=== PATIENT | male | born 1970 | race Two or more races ===

== ENCOUNTER 2024-09-08 05:18 | Observation (INO) ==
--- NOTE | 2024-08-08 10:28 | PAT Medication Instructions ---
Medication Instructions Date of Service August 08, 2024 Home Medications aspirin 81 mg capsule 81 mg PO 2XWK glucosamine sulf dipot chlr,msm,chond 550 mg-C 30 mg-armin 1 mg capsule (Glucosamine Chondroitin) 1 cap PO 2XWK multivitamin 1 tab PO 2XWK omeprazole magnesium 20 mg tablet,delayed release (Prilosec OTC) 10 mg PO Q2D Continue as directed omeprazole magnesium 20 mg tablet,delayed release (Prilosec OTC) 10 mg PO Q2D ASK your prescriber and surgeon aspirin 81 mg capsule 81 mg PO 2XWK STOP taking 2 weeks before surgery (or as soon as possible if surgery is within 2 weeks) glucosamine sulf dipot chlr,msm,chond 550 mg-C 30 mg-armin 1 mg capsule (Glucosamine Chondroitin) 1 cap PO 2XWK DO NOT take the morning of surgery multivitamin 1 tab PO 2XWK MORNING OF SURGERY: NOTHING TO EAT OR DRINK AFTER MIDNIGHT Other Notes If you have any questions please call us at [phone] or [phone] or [phone] or [phone]
--- NOTE | 2024-08-12 15:20 | Anesthesiology Consultation ---
Date of Service August 12, 2024 Assessment & Plan (1) Encounter for pre-operative examination: - Case discussed in detail with Dr. Aguilar who advised nothing additional is needed. - Outpatient joint assessment: Patient is currently scheduled for inpatient pathway. If re-evaluated and patient/surgeon requests outpatient pathway, patient is not ideal candidate for outpatient joint program from anesthesia standpoint pending surgeon's office assessment of pt motivation/support/completion of same day joint program preop requirements. Chart Review Chart Review: Acceptable Risk for Surgery and Patient seen in Pre Admission Testing Teaching & Discussion Pre-Anesthesia Teaching/Discussion Notes: Instructed NPO after midnight before surgery, except medications with 15 cc of water. Medication instructions provid ed according to the [facility] guidelines. History Surgery Operation Date: 09/08/24 11:00 Proposed Procedures p Left Anterior Total Hip Arthroplasty - Dom Alejandro, Height/Weight Height: 5 ft 10 in Weight: 142.8 kg Allergies Allergy/AdvReac Type Severity Reaction Status Date / Time No Known Allergies Allergy Verified 08/07/24 08:24 Medications Home Medications Medication Instructions Recorded Confirmed Last Taken aspirin 81 mg capsule 81 mg PO 2XWK 08/07/24 08/07/24 Unknown glucosamine sulf dipot 1 cap PO 2XWK 08/07/24 08/07/24 Unknown chlr,msm,chond 550 mg-C 30 mg-armin 1 mg capsule (Glucosamine Chondroitin) multivitamin 1 tab PO 2XWK 08/07/24 08/07/24 Unknown omeprazole magnesium 20 mg 10 mg PO Q2D 08/07/24 08/07/24 Unknown tablet,delayed release (Prilosec OTC) Past Medical History Medical History (Updated 08/18/24 @ 12:32 by Melissa De La Vega PA-C) Cardiac murmur detected 10 yrs ago-states had extensive cardiac testing which was all normal-has no issues, discharged from cardiology, no longer needs to see-no murmur detected at 08/12/24 PAT visit Chronic back pain Heartburn controlled, stable per pt Osteoarthritis Palpitations agpqspp-zfaj-ddgfgdn negative cardiac work-up 10 yrs ago-lasts 10-15 minutes- associated dizziness-denies presyncope-denies change or worsening since onset 10 yrs ago Patient denies h/o stroke, seizures, heart attack, heart failure, DM, HTN, blood clots/DVTs or blood transfusions. Exercise / Class Metabolic Activity III < 4 Walking/Shop/Light housework (denies chest discomfort or shortness of breath with usual activities, denies regularly walking up one flight of stairs/up a hill) Past Family History Family History Other No family history of adverse response to anesthesia Past Surgical History Surgical History History of bilateral knee replacement (2015) History of colonoscopy History of surgery mass removal-left testicle Hx laparoscopic cholecystectomy (2018) S/P lumbar laminectomy (2008) L4/L5 Past Anesthesia History No Hx of Anesthesia Complications and No Family Hx of Anesthesia Complications History of PONV No Hx of PONV and No Hx of Motion Sickness Social History Smoking Status: Never smoker Do You Dip or Chew Tobacco: No Hx Alcohol Use: No Hx Substance Use: No substance use type: does not use Review of Systems Snoring, denies witnessed apneas. Patient denies chest pain, shortness of breath, dyspnea on exertion, fever, chills, cough, or wheezing. Physical Exam Vital Signs Vitals BP 148/96 P 81 TEMP 98.4 SP02 94% on RA RESP 18 Physical Patient resting comfortably in chair in no acute distress, alert and oriented, responding appropriately throughout visit Full cervical extension range of motion without pain TMD 3.5 finger breadths Mallampati Score 3 Dentition: several chipped teeth, denies loose teeth, caps/crowns, implants or bridges Lungs: normal respiratory effort. Good air movement, clear throughout to auscultation, no adventitious breath sounds Cardiac: regular rhythm and rate, no murmurs noted Carotid arteries: negative bruit bilat Lab Results Anesthesia Preop Results Results Anesthesia Widget: WBC 9.41 K/ul (4.8-10.8) 08/12/24 Hgb 15.4 g/dl (14.0-18.0) 08/12/24 Hct 44.4 % (42.0-52.0) 08/12/24 Plt 230 K/uL (130-400) 08/12/24 Na 141 mmol/L (136-145) 08/12/24 K 4.2 mmol/L (3.5-5.1) 08/12/24 Cl 105 mmol/L (98-107) 08/12/24 CO2 30 mmol/L (21-32) 08/12/24 BUN 16 mg/dl (6-23) 08/12/24 Creat 0.98 mg/dl (0.6-1.4) 08/12/24 Glucose Level 92 mg/dl (70-99(Fasting)) 08/12/24 PT 10.7 Seconds (9.0-12.0) 08/12/24 PTT 28 Seconds (21-31) 08/12/24 INR 1.0 (0.9-1.1) 08/12/24 Blood Type A Negative 08/12/24 Antibody Screen NEGATIVE 08/12/24 Testing Electrocardiogram Date: 08/14/24 Sinus rhythm with occasional PVCs, rate 79 bpm Chest X-Ray Date: 08/12/24 No acute findings.
--- NOTE | 2024-09-04 14:29 | History & Physical Report ---
Date of Service September 04, 2024 Assessment & Plan (1) Osteoarthritis of left hip: We will proceed with a left total hip arthroplasty. Postoperatively, he will be started on aspirin for DVT prophylaxis and kept overnight in the hospital for postop medical management. He plans to have the hospital set up home health for discharge. History of Present Illness Chief Complaint: Osteoarthritis of the left hip. Primary Care Provider: NO PCP Truman is a pleasant 54-year-old male who has been ill with chronic increasing left hip and groin pain. X-rays and clinical exam have been diagnostic for advanced arthritis of the left hip. After failed conservative treatment, he has elected to proceed with a left total hip arthroplasty.. Allergies Allergy/AdvReac Type Severity Reaction Status Date / Time No Known Allergies Allergy Verified 08/07/24 08:24 Home Medications Medication Instructions Recorded Confirmed Type aspirin 81 mg capsule 81 mg PO 2XWK 08/07/24 08/07/24 History glucosamine sulf dipot 1 cap PO 2XWK 08/07/24 08/07/24 History chlr,msm,chond 550 mg-C 30 mg-armin 1 mg capsule (Glucosamine Chondroitin) multivitamin 1 tab PO 2XWK 08/07/24 08/07/24 History omeprazole magnesium 20 mg 10 mg PO Q2D 08/07/24 08/07/24 History tablet,delayed release (Prilosec OTC) Past Med/Surg History Problem List Encounter for pre-operative examination Osteoarthritis of left hip Medical History Palpitations yoohtzp-fcej-[id number] negative cardiac work-up 10 yrs ago-lasts 10-15 minutes- associated dizziness-denies presyncope-denies change or worsening since onset 10 yrs ago Chronic back pain Heartburn controlled, stable per pt Osteoarthritis Cardiac murmur detected 10 yrs ago-states had extensive cardiac testing which was all normal-has no issues, discharged from cardiology, no longer needs to see-no murmur detected at 08/12/24 PAT visit Surgical History History of surgery mass removal-left testicle History of colonoscopy Hx laparoscopic cholecystectomy (2018) S/P lumbar laminectomy (2009) L4/L5 History of bilateral knee replacement (2016) Family History Other No family history of adverse response to anesthesia Social History Smoking Status: Never smoker Second Hand Exposure: No; Do You Dip or Chew Tobacco: No; Hx Alcohol Use: No Hx Substance Use: No Preferred Language: Armenian Communication Ability: Effective Mercury Washer Required: No Beliefs That Will Affect Care: None Current Living Situation: Spouse Feels Safe at Home: Yes Assistive Devices: Glasses Review of Systems All systems reviewed & are unremarkable except as noted in HPI & below. Physical Exam On physical exam of the left hip, he has decreased range of motion. He has pain with internal/external rotation. All of his pains in the groin.. Constitutional WD/WN, vitals as above Eyes PERRL, conjunctivae normal, anicteric sclerae ENMT external ear and nose normal, oropharynx normal Neck trachea midline, no thyromegaly Respiratory normal respiratory effort Cardiovascular RRR, no murmur, no edema Gastrointestinal (Abdomen) normal bowel sounds, soft, nontender, no hepatosplenomegaly Psychiatric A+Ox3, euthymic affect Results & Data Results & Data Laboratory Results . Diagnostic Findings X-rays of the left hip show advanced osteoarthritis with joint space narrowing, osteophyte formation, and vmae-wu-dcjh articulation. PG Care Time/CCT Total # of Minutes Spent Total Time Spent with Patient: Total time spent is greater than 50% in coordination of care (as documented) at patient's floor/unit and/or counseling patient: Coding Level of Care Code None Diagnoses Osteoarthritis of left hip M16.12
[2024-09-08] MEDS: dexAMETHasone**PF** 10 MG/ML VIAL IV SCH (05:33)
[2024-09-08] MEDS: GABAPENTIN 900 MG DOSE PO SCH (05:33)
[2024-09-08] MEDS: LR 60ML/HR IV SCH (05:34)
[2024-09-08] MEDS: ACETAMINOPHEN 500 MG TAB PO SCH ×2 (05:34→13:45)
[2024-09-08] MEDS: FAMOTIDINE 20 MG TAB PO SCH (05:34)
[2024-09-08] MEDS: LR 500ML BOLUS, THEN 15ML/HR IV SCH (06:05)
[2024-09-08] MEDS ORDERED: BUPIVACAINE 0.5 % 5 MG/1 ML PF 10ML VIAL ONE (06:07)
[2024-09-08] MEDS ORDERED: MIDAZOLAM HCL 1 MG/ML 2ML VIAL ONE (06:11)
[2024-09-08] MEDS ORDERED: ONDANSETRON INJ 2 MG/ML 2 ML VIAL IV PRN ×2 (06:25→09:48)
[2024-09-08] MEDS ORDERED: ATROPINE SULFATE 0.1 MG/ML 10ML SYR IV PRN (06:25)
--- NOTE | 2024-09-08 06:33 | History & Physical Bridge Note ---
Date of Service September 08, 2024 History & Physical Bridge Note I have examined the patient, reviewed the History & Physical and in the interval since the performance of the History & Physical I have noted the following changes of clinical significance: no changes noted
[2024-09-08] MEDS ORDERED: PROPOFOL IV EMULSION 10 MG/ML 20 ML VIAL IV ONE ×4 (06:36→08:13)
[2024-09-08] MEDS: TRANEXAMIC ACID 1,000 MG **IV Pre-op IV SCH (06:39)
[2024-09-08] MEDS: ceFAZolin 3000MG 3,000 MG/72.5 ML BAG IV SCH (07:00)
[2024-09-08] MEDS ORDERED: PHENYLEPHRINE 100MCG/ML 5ML SYR ONE ×3 (07:24→08:08)
[2024-09-08] MEDS ORDERED: ePHEDrine sulfate 50 MG/5 ML SYR ONE (07:24)
[2024-09-08] MEDS ORDERED: ONDANSETRON INJ 2 MG/ML 2 ML VIAL ONE (07:31)
[2024-09-08] MEDS: ORTHO JOINT ANESTHETIC ONE (07:33)
[2024-09-08] MEDS: ROPIV 0.5% 246mg, Ketorolac 30mg, EPINEPHrine 0.5mg in NSS INFIL SCH (07:33)
[2024-09-08] MEDS ORDERED: KETAMINE HCL 10MG/ML SYR ONE (08:04)
--- NOTE | 2024-09-08 08:25 | Operative Report ---
PG Post Operative Report Pre & Post Diagnosis Operation Date: 09/08/24 07:00 Pre-Op Diagnosis: Left Hip Arthritis Post-Op Diagnosis: Left Hip Arthritis I identified the patient and participated in the time-out.: Yes Procedure Operation Date: 09/08/24 07:00 Actual Procedures p Left Anterior Total Hip Arthroplasty(Left) - Dom Alejandro DO Surgeon Dom Alejandro DO Training And Development Head Tony Graves PA-C Estimated Blood Loss 400 Findings Consistent with Post-Op Diagnosis Specimens Left femoral head Description of Procedure Implants used I used a [employer]immer[employer]omet total hip arthroplasty system with a size 7 standard offset Z1 stem, a 54 mm G7 cup with a 25mm screw, an E1 polyethylene liner, a 40 mm ceramic head with a +3.5 neck. Truman arrived at the hospital for the above procedure. He was seen in the preoperative holding area and the operative extremity was identified and signed. He was given a spinal anesthetic, a preoperative antibiotic, and TXA. He was then taken back to the operating room and laid on the table in the supine position. He was given basic sedation. The operative leg was secured to a Puristst leg positioner. The hip was then prepped and draped in sterile fashion. A timeout was done and the patient and the operative extremity was properly identified. An anterior approach was used. Dissection was taken down through the fascia and the tensor muscle belly was retracted laterally and the rectus was retracted medially. The circumflex vessels were identified and ligated. The capsule was then incised and tagged for later repair. The femoral neck was then cut and the femoral head was removed. The acetabulum was exposed. Time was spent doing a complete circumferential labral release. Sequential reaming of the acetabulum up to a size 53 reamer was done. Final reamings were done under fluoroscopy to ensure appropriate version. A Biomet 54 mm G7 cup was then impacted into place. A single 25 mm screw was placed. The E1 polyethylene liner was then snapped into place. Surrounding soft tissues were then injected with 100 cc of an orthopedic pain control cocktail. The proximal femur was then exposed. Sequential broaching up to a size 7 broach was done. Off that broach a size 40 head with a +3.5 neck was trialed. The hip was reduced and fluoroscopic images showed anatomic alignment of the implants in acceptable length. The broach was removed. The final size 7 standard offset Z1 stem was then impacted into place. A ceramic 40 mm head with a +3.5 neck was then impacted onto the stem and the hip was reduced. Final fluoroscopic images showed anatomic alignment of the hip. The capsule was then closed with #1 Vicryl suture. A dilute betadyne lavage was then done for 3 minutes. The joint was then irrigated with normal saline solution. The fascia was closed with #1 PDS suture. Skin was closed with 2-0 Vicryl, joshua, and a Silverlon dressing. He was then transferred to a hospital bed and taken to the post anesthesia care unit in stable condition. He tolerated the procedure well. Tony Graves PA-C, was present for the entire procedure. He was critical for pat ient positioning, prepping, draping, retraction exposure, wound closure and application of sterile dressing. I attest to the content of the Intraoperative Record and any orders documented therein. Any exceptions are noted below.
--- NOTE | 2024-09-08 09:43 | XRay Report ---
XR hip 1V LT w pelvis CLINICAL HISTORY: IN PACU - Post Surgical COMPARISON: None FINDINGS: Left hip prosthesis shows no hardware complication. There is expected soft tissue gas. Ski n joshua are present. There are jdxr-yq-cjjclgsr degenerative changes right hip. IMPRESSION: Unremarkable postoperative exam. ACT 112: Negative or not required by law. Electronically signed by: Sabas Espinal M.D. 09/08/2024 9:42 AM
[2024-09-08] MEDS ORDERED: MAGNESIUM HYDROXIDE SUSP 30 ML UDC PO PRN (09:48)
[2024-09-08] MEDS ORDERED: METOCLOPRAMIDE HCL INJ 5 MG/ML 2 ML VIAL IV PRN (09:48)
[2024-09-08] MEDS ORDERED: HYDROmorphone INJ 0.5 MG/0.5 ML SYR IV PRN (09:48)
[2024-09-08] MEDS ORDERED: NALOXONE HCL 0.4 MG/1 ML VIAL/CARP IV PRN (09:48)
--- NOTE | 2024-09-08 10:07 | Fluoroscopy Report ---
FL hip LT 1V CLINICAL HISTORY: LEFT ANT HIP COMPARISON STUDY: None FLUOROSCOPY TIME: 17 seconds FLUOROSCOPY IMAGES: 1 EXPOSURE DOSE: 5.9 mGy FINDINGS: Fluoroscopy was provided for left hip prosthesis. IMPRESSION: Intraoperative fluoroscopy. ACT 112: Negative or not required by law. Electronically signed by: Sabas Espinal M.D. 09/08/2024 10:06 AM
[2024-09-08] MEDS: KETOROLAC TROMETHAMINE 15 MG/ML VIAL IV SCH (10:37)
[2024-09-08] MEDS: SODIUM CHLORIDE 0.9% 1,000 ML IV SCH (10:37)
--- NOTE | 2024-09-08 13:51 | Anesthesiology Progress Note ---
Date of Service September 08, 2024 Anesthesia Post Procedure Vital Signs Vital Signs: Temp Pulse Pulse Pulse Pulse Resp BP 09/08/24 13:00 97.7 F 88 16 108/72 09/08/24 11:58 97.9 F 92 H 16 114/74 09/08/24 11:00 98.1 F 87 18 115/66 09/08/24 10:30 97.9 F 80 16 116/68 09/08/24 10:00 97.9 F 78 18 116/68 09/08/24 10:00 97.9 F 82 16 125/78 09/08/24 09:35 97.7 F 84 16 114/79 09/08/24 09:25 84 16 133/80 09/08/24 09:15 85 16 113/77 09/08/24 09:05 92 H 16 149/101 H 09/08/24 08:55 96.8 F L 101 H 16 126/87 09/08/24 05:35 97.9 F 86 20 BP Pulse Ox O2 Del Method O2 Flow Rate 09/08/24 13:00 95 Room Air 09/08/24 11:58 98 Room Air 09/08/24 11:00 97 Room Air 09/08/24 10:30 98 Room Air 09/08/24 10:00 96 Room Air 09/08/24 10:00 94 Room Air 09/08/24 09:35 96 Room Air 09/08/24 09:25 97 Oxymask 3 09/08/24 09:15 95 Oxymask 4 09/08/24 09:05 96 Oxymask 6 09/08/24 08:55 94 Oxymask 6 09/08/24 05:35 170/97 H 96 Room Air Pain Intensity Left Hip: Pain Intensity: 4 Transfer of Care Handoff Completed per policy Notes Mental Status: alert / awake / arousable and participated in evaluation Patient Amnestic to Procedure: Yes Nausea / Vomiting: adequately controlled Pain: adequately controlled Airway Patency, RR, SpO2: stable & adequate BP & HR: stable & adequate Hydration State: stable & adequate Neuraxial Anesthesia: was administered and sensory block is resolving Anesthetic Complications: no major complications apparent and Pt Satisfied with anesthetic care
[2024-09-08] MEDS: SENNA 8.6 MG TAB PO SCH (20:56)
[2024-09-08] MEDS: ASPIRIN 81 MG ECTAB PO SCH (20:56)
[2024-09-08] MEDS: DOCUSATE SODIUM 100 MG CAP PO SCH (20:56)
[2024-09-09 04:08] VITALS: TEMP 97.5
[2024-09-09] MEDS: MULTIVITAMIN TAB PO SCH (07:14)
[2024-09-09 07:25] VITALS: BP 134/78; PULSE 70; RESP 16; O2SAT 97
--- NOTE | 2024-09-09 11:22 | Orthopedic Progress Note ---
Date of Service September 09, 2024 Assessment & Plan (1) S/P total left hip arthroplasty: * Continue Current Treatment * Disposition: home * Daily treatment: Physical Therapy/ Occupational Therapy per protocol * Weight bearing status: WBAT * Continue to monitor for ABLA * Pain control * DVT prophylaxis, ASA * Office/hospital f/u 2 weeks for progress check and staple/suture removal * Plan for discharge today pending PT/OT clearance Subjective . Active Problems: S/p left AMADOR POD 1 54 y/o male s/p left AMADOR. Doing well overall, pain managed and improved function. Denies fever/chills, chest pain/SOB, nausea/vomiting. Otherwise no complaints. Review of Systems All systems reviewed & are unremarkable except as noted in HPI & below. Physical Exam . * General: Alert and oriented, no acute distress * Constitutional: well-developed, well-nourished. * Respiratory: Normal respiratory effort, no distress * Gastrointestinal: No tenderness to palpation, no rigidity or guarding. * Skin: No rash or lesion. * Neurologic: Grossly normal * Musculoskeletal: left hip surgical dressing CDI, Prevena intact, not removed for exam. Otherwise no obvious deformity or overlying skin changes. Diffuse TTP proximal thigh and hip region. Otherwise no specific tenderness of distal thigh, lower leg, foot/ankle. AROM hip flexion intact. AROM foot/ankle intact. Sensation intact plantar/dorsal foot. Brisk capillary refill. Results & Data Results & Data Laboratory Results . Diagnostic Findings . PG Care Time/CCT Total # of Minutes Spent Total Time Spent with Patient: Total time spent is greater than 50% in coordination of care (as documented) at patient's floor/unit and/or counseling patient: Coding Level of Care Code 56668 Post Operative Follow-Up Diagnoses S/P total left hip arthroplasty Z96.642
== END 2024-09-09 11:35 | disposition home or self-care (01) ==
LOC: ASU 05:18 → 3E 05:18